=== PATIENT | male | born 1980 | race Caucasian/White ===

== ENCOUNTER 2018-03-26 14:50 | Emergency (ER) | payer OTHER ==
[2018-03-26] MEDS ORDERED: SODIUM CHLORIDE 0.9% 1,000 ML IV ONE (15:55)
[2018-03-26 16:18] LABS: BASOPHILS # (AUTO) 0.1 10^3/uL (0.0-0.1); BASOPHILS % (AUTO) 0.9 %; EOSINOPHILS # (AUTO) 0.2 10^3/uL (0.0-0.7); EOSINOPHILS % (AUTO) 2.3 %; HGB - HEMOGLOBIN 16.5 g/dL (14.0-18.0); LYMPHOCYTES # (AUTO) 1.8 10^3/uL (1.5-3.5); MEAN CORPUSCULAR HEMOGLOBIN 29.7 pg (27.0-31.0); MEAN CORPUSCULAR HGB CONC 35.5 g/dL (32.0-36.0); MEAN CORPUSCULAR VOLUME 83.5 fL (80.0-94.0); MEAN PLATELET VOLUME 8.1 fL (7.4-11.4); MONOCYTES # (AUTO) 0.8 10^3/uL (0.0-1.0); NEUTROPHILS # (AUTO) 4.8 10^3/uL (1.5-6.6); NEUTROPHILS % (AUTO) 62.8 %; PLT - PLATELET COUNT 239 10^3/uL (130-450); RED BLOOD COUNT 5.54 10^6/uL (4.70-6.10); RED CELL DISTRIBUTION WIDTH 12.7 % (12.0-15.0); WHITE BLOOD COUNT 7.7 x10^3/uL (4.8-10.8)
[2018-03-26 16:21] LABS: BILIRUBIN,URINE NEGATIVE (NEGATIVE); GLUCOSE, URINE (UA) NEGATIVE (NEGATIVE); KETONES,URINE (UA) NEGATIVE (NEGATIVE); LEUKOCYTE ESTERASE, URINE NEGATIVE (NEGATIVE); NITRITE,URINE NEGATIVE (NEGATIVE); OCCULT BLOOD,URINE NEGATIVE (NEGATIVE); PH,URINE 6.5 PH (5.0-7.5); PROTEIN,URINE NEGATIVE (NEGATIVE); UROBILINOGEN,URINE 0.2 (NORMAL) E.U./dL (NORMAL)
[2018-03-26 16:25] LABS: CLARITY,URINE CLEAR (CLEAR)
[2018-03-26 16:49] LABS: ALBUMIN 4.1 g/dL (3.2-5.5); ALBUMIN/GLOBULIN RATIO 1.2 (1.0-2.2); BILIRUBIN,TOTAL 0.3 mg/dL (0.2-1.0); CALCIUM 9.3 mg/dL (8.5-10.3); CREATININE 0.7 mg/dL (0.6-1.2); MAGNESIUM 2.1 mg/dL (1.7-2.8); TOTAL PROTEIN 7.5 g/dL (6.7-8.2)
--- NOTE | 2018-03-26 16:58 | ED Physician Documentation ---
History of Present Illness - Stated complaint Stated Complaint: DIZZY - Chief complaint Chief Complaint: Neuro - History obtained from History obtained from: Patient - Additonal information Additional information: 37-year-old male presents the emergency department for evaluation the episode of dizziness. The patient currently is incarcerated and was playing basketball when he became very lightheaded. Per bystanders the patient had to be lowered to the ground. The patient was altered during this episode. The patient denies any chest pain or palpitations before or after the event. No reports of trauma. Currently, the patient feels spacey. No specific triggering factors. No other associated symptoms. Symptoms are described as moderate. Review of Systems Constitutional: denies: Fever, Chills Eyes: denies: Discharge Ears: denies: Ear pain Nose: denies: Congestion Throat: denies: Sore throat Cardiac: denies: Chest pain / pressure, Palpitations Respiratory: denies: Dyspnea GI: denies: Abdominal Pain : denies: Dysuria, Hematuria Musculoskeletal: denies: Neck pain Neurologic: reports: Syncope. denies: Generalized weakness, Focal weakness, Numbness, Headache, Head injury Immunocompromised: denies: Chemotherapy PD PAST MEDICAL HISTORY - Past Medical History Cardiovascular: None Respiratory: None Endocrine/Autoimmune: None GI: None : None HEENT: None Psych: Depression Musculoskeletal: None Derm: None - Past Surgical History Past Surgical History: No - Present Medications Home Medications: Ambulatory Orders Medication Instructions Recorded Confirmed No Known Home Medications [No 03/26/18 03/26/18 Known Home Medications] - Allergies Allergies/Adverse Reactions: Allergies Allergy/AdvReac Type Severity Reaction Status Date / Time No Known Drug Allergies Allergy Verified 03/26/18 15:03 - Social History Does the pt smoke?: Yes Smoking Status: Current every day smoker Does the pt drink ETOH?: Yes Does the pt have substance abuse?: No - Immunizations Immunizations are current?: Yes - POLST Patient has POLST: No PD ED PE NORMAL - General General: Alert and oriented X 3, No acute distress - HEENT HEENT: Atraumatic, PERRL, EOMI - Neck Neck: Supple, no meningeal sign - Cardiac Cardiac: RRR, Strong equal pulses - Respiratory Respiratory: No respiratory distress - Abdomen Abdomen: Soft, Non tender - Derm Derm: Normal color - Extremities Extremities: No deformity, No tenderness to palpate, Normal ROM s pain - Neuro Neuro: Alert and oriented X 3, No motor deficit, Normal speech - Psych Psych: Normal affect Results - Vitals Vitals: Vital Signs - 24 hr 03/26/18 03/26/18 14:58 16:31 Temperature 36.6 C Heart Rate 103 H Heart Rate [ 87 Sitting] Heart Rate [ 89 Standing] Heart Rate [ 77 Supine] Respiratory 16 Rate Blood Pressure 151/103 H Blood Pressure 148/100 H [Sitting] Blood Pressure 128/84 H [Standing] Blood Pressure 136/86 H [Supine] O2 Saturation 94 Oxygen O2 Source Room air - EKG (time done) 14:53 Rate: Rate (enter#) Rhythm: NSR Intervals: Normal IL, QRS normal Ischemia: Normal ST segments Other comments: Other comments (Normal sinus rhythm without acute ischemic or arrhythmic changes) - Labs Labs: Laboratory Tests 03/26/18 03/26/18 03/26/18 16:10 16:14 16:14 WBC 7.7 RBC 5.54 Hgb 16.5 Hct 46.3 MCV 83.5 MCH 29.7 MCHC 35.5 RDW 12.7 Plt Count 239 MPV 8.1 Neut # (Auto) 4.8 Lymph # (Auto) 1.8 [place] # (Auto) 0.8 Eos # (Auto) 0.2 Baso # (Auto) 0.1 Absolute Nucleated RBC 0.00 Nucleated RBC % 0.1 Sodium 134 L Potassium 3.8 Chloride 100 L Carbon Dioxide 25 Anion Gap 9.0 BUN 14 Creatinine 0.7 Estimated GFR (MDRD) 126 Glucose 100 Calcium 9.3 Magnesium 2.1 Total Bilirubin 0.3 AST 42 ALT 85 H Alkaline Phosphatase 70 Total Creatine Kinase 44 Troponin I Total Protein 7.5 Albumin 4.1 Globulin 3.4 Albumin/Globulin Ratio 1.2 Lipase 30 Urine Color YELLOW Urine Clarity CLEAR Urine pH 6.5 Ur Specific [place] 1.010 Urine Protein NEGATIVE Urine Glucose (UA) NEGATIVE Urine Ketones NEGATIVE Urine Occult Blood NEGATIVE Urine Nitrite NEGATIVE Urine Bilirubin NEGATIVE Urine Urobilinogen 0.2 (NORMAL) Ur Leukocyte Esterase NEGATIVE Ur Microscopic Review NOT INDICATED Urine Culture Comments NOT INDICATED 03/26/18 16:14 WBC RBC Hgb Hct MCV MCH MCHC RDW Plt Count MPV Neut # (Auto) Lymph # (Auto) [place] # (Auto) Eos # (Auto) Baso # (Auto) Absolute Nucleated RBC Nucleated RBC % Sodium Potassium Chloride Carbon Dioxide Anion Gap BUN Creatinine Estimated GFR (MDRD) Glucose Calcium Magnesium Total Bilirubin AST ALT Alkaline Phosphatase Total Creatine Kinase Troponin I < 0.04 Total Protein Albumin Globulin Albumin/Globulin Ratio Lipase Urine Color Urine Clarity Urine pH Ur Specific [place] Urine Protein Urine Glucose (UA) Urine Ketones Urine Occult Blood Urine Nitrite Urine Bilirubin Urine Urobilinogen Ur Leukocyte Esterase Ur Microscopic Review Urine Culture Comments - Rads (name of study) Chest XR Radiology: Final report received (IMPRESSION: No acute cardiopulmonary abnormality. ) PD MEDICAL DECISION MAKING - ED course ED course: The patient's workup does not reveal any significant abnormality, the patient appears low risk and appropriate for discharge back to the [facility]. I recommended further workup as an outpatient. The patient on reexamination feels much improved and appears appropriate for discharge and ongoing outpatient management. I discussed warning signs and recommended returning to the emergency department immediately for worsening or any concerns - Sepsis Event Vital Signs: Vital Signs - 24 hr 03/26/18 03/26/18 14:58 16:31 Temperature 36.6 C Heart Rate 103 H Heart Rate [ 87 Sitting] Heart Rate [ 89 Standing] Heart Rate [ 77 Supine] Respiratory 16 Rate Blood Pressure 151/103 H Blood Pressure 148/100 H [Sitting] Blood Pressure 128/84 H [Standing] Blood Pressure 136/86 H [Supine] O2 Saturation 94 Oxygen O2 Source Room air Departure - Departure Disposition: 01 Home, Self Care Clinical Impression: Syncope Qualifiers: Syncope type: unspecified Qualified Code(s): R55 - Syncope and collapse Condition: Good Instructions: ED Dizziness UKO, Syncope Causes Follow-Up: Nimo Brown PA [Primary Care Provider] - Within 1 week (Please ask your primary care provider to arrange for an outpatient echocardiogram and Holter monitor to further assess your symptoms) Comments: Please return to the emergency department immediately for worsening symptoms or any concerns
--- NOTE | 2018-03-26 17:55 | XRAY Report ---
Reason: syncope Procedure Date: 03/26/2018 Accession Number: [id number] / [id number] Procedure: XR - Chest 2 View X-Ray CPT Code: 21063 FULL RESULT: EXAM: CHEST RADIOGRAPHY EXAM DATE: 03/26/2018 05:35 PM. CLINICAL HISTORY: Syncope COMPARISON: 10/26/2014. TECHNIQUE: 2 views. FINDINGS: Lungs/Pleura: No focal opacities evident. No pleural effusion. No pneumothorax. Normal volumes. Mediastinum: Heart and mediastinal contours are normal. Other: None. IMPRESSION: No acute cardiopulmonary abnormality. RADIA
[2018-03-26 18:15] VITALS: BP 125/86
== END 2018-03-26 18:15 | disposition home or self-care (01) ==
LOC: ED 14:50
DX: R55 Syncope and collapse (principal); F17.200 Nicotine dependence, unspecified, uncomplicated
CPT/HCPCS: 71046; 80053; 81001; 81003; 82550; 83690; 83735; 84484; 85025; 87086; 93005; 96360; 99283

== ENCOUNTER 2022-10-08 12:45 | Emergency (ER) | payer BC, OTHER ==
[2022-10-08 13:07] VITALS: BP 141/90
[2022-10-08] MEDS ORDERED: lidocaine 1% 20 ML MDV SUBQ ONE (13:25)
[2022-10-08] MEDS ORDERED: BACITRACIN ZINC OINT 1 PACKET TOP STA (13:25)
--- NOTE | 2022-10-08 13:28 | ED Physician Documentation ---
History of Present Illness - Stated complaint Stated Complaint: L FINGER LAC - Chief complaint Chief Complaint: Laceration - Additonal information Additional information: 41-year-old male presents emergency department for evaluation of a U-shaped laceration to the fat pad of his left small finger. Was working on brakes at home when a clamp he was using slipped striking in the small finger. Last tetanus about 2 years ago. He is right-hand dominant. Neurovascularly intact. Review of Systems Constitutional: denies: Fever, Chills Skin: reports: Laceration (s) PD PAST MEDICAL HISTORY - Past Medical History Cardiovascular: None Respiratory: None Endocrine/Autoimmune: None GI: None : None HEENT: None Psych: Depression Musculoskeletal: None Derm: None - Past Surgical History Past Surgical History: No - Present Medications Home Medications: Ambulatory Orders Medication Instructions Recorded Confirmed cephALEXin [Keflex] 500 mg PO Q6H #28 cap 10/08/22 oxyCODONE [Roxicodone] 5 mg PO TID PRN #15 tablet 10/08/22 - Allergies Allergies/Adverse Reactions: Allergies Allergy/AdvReac Type Severity Reaction Status Date / Time No Known Drug Allergies Allergy Verified 10/08/22 13:07 - Social History Does the pt smoke?: Yes Smoking Status: Current every day smoker Does the pt drink ETOH?: Yes Does the pt have substance abuse?: No - Immunizations Immunizations are current?: Yes - POLST Patient has POLST: No PD ED PE EXPANDED - Extremities Extremities: Left finger(s) (4 cm U-shaped macerated laceration/avulsion to the fat pad of the left small finger. Neurovascular intact. Flexion extension at DIP preserved. Large amount of exposed fatty and muscle tissue.) Results - Vitals Vitals: Vital Signs - 24 hr 10/08/22 13:04 Temperature 36 C L Heart Rate 93 Respiratory 16 Rate Blood Pressure 141/90 H O2 Saturation 96 Oxygen O2 Source Room air - Rads (name of study) left fingers Relevant Findings:: EMP independent interpretation of test (Distal left phalanx fracture of small finger) Procedures - Laceration (location) left small finger Length in cm: 4 Wound type: Irregular, Into muscle, Contaminated, Exposure of bone Neurovascular status: Sensory intact, Motor intact Tendon involvement: Tendon intact Anesthesia: Lidocaine 1% Wound preparation: Chlorhexadine, Irrigated copiously NS Skin layer closure: Nylon, Interrupted, Sutures - enter # (8) Other: Patient tolerated well, No complications, Neurovascular intact, Tetanus UTD PD Medical Decision Making - ED course Complexity details: reviewed results, re-evaluated patient, considered differential, d/w patient ED course: 41-year-old male presents emergency department for evaluation of a laceration to the fat pad of his left small finger sustained when working on his car at home, the clamps slipped striking his finger. On exam he has a U-shaped macerated laceration to his fat pad. There is significant avulsion of tissue including fat and muscle body. Unfortunately an x-ray also shows a distal phalanx fracture. At the bedside the wound was copiously irrigated with saline. The edges were approximated using 8 interrupted nylon sutures. Patient's tetanus is up-to-date. I recommended an injection of an antibiotic i.e. ceftriaxone as prophylaxis for an open fracture but the patient declined to that. He will only take oral antibiotics. Once the wound was approximated a dressing and finger splint were placed. He will follow closely with orthopedics for longer-term evaluation and management. Limited perch prescription for oxycodone has been sent to the patient's preferred pharmacy as well as a 7-day course of Keflex. Usualwound care and emergent return precautions for concerns of infection were discussed. I am prescribing a short course of short-acting opioid pain medication for this patient. I have reviewed the patients [employer] and no concerning findings were noted. I have discussed that the opioids are for short term therapy only, and will not be refilled from the ED. Departure - Departure Disposition: 01 Home, Self Care Clinical Impression: Phalanx, distal fracture of finger Qualifiers: Encounter type: initial encounter Finger: little finger Fracture type: open Fracture alignment: displaced Laterality: left Qualified Code(s): S62.637B - Displaced fracture of distal phalanx of left little finger, initial encounter for open fracture Finger laceration Qualifiers: Encounter type: initial encounter Finger: little finger Condition: Stable Record reviewed to determine appropriate education?: Yes Follow-Up: Alexis Best MD [Provider Admit Priv/Credential] - Prescriptions: cephALEXin [Keflex] 500 mg PO Q6H #28 cap oxyCODONE [Roxicodone] 5 mg PO TID PRN #15 tablet PRN Reason: Pain Comments: Joshua unfortunately the x-ray confirms that you do have a fracture of the distal bone of your small finger. This is also accompanied by a large, macerated injury to the finger in which she sustained a loss of tissue as well. We did place 8 sutures in this finger in order to approximate the wound. However this will have to also heal by secondary intention or from the inside out over time. You declined to receive an intramuscular injection of ceftriaxone today. This is critical to help reduce the risk of infection in the fingers. However we are also sending a prescription for 7 days of Keflex to the pharmacy. A limited prescription of oxycodone for pain is also been sent. 24 hours time you can gently remove your dressing wash with warm soap and water, pat dry and then apply antibiotic ointment such as bacitracin to the wound. Then apply a bandage and your splint again. This wound will take 2 to 3 weeks to heal. The bone itself will take 6 to 10 weeks to heal. It is important that you follow closely with an orthopedic doctor. Please call your doctor tomorrow to obtain the referral. I do recommend Dr. Best our local orthopedic surgeon here if you have a private 1 that you prefer to follow- up with you can do that as well If you develop any concerns of infection, fevers, have finger redness, milky drainage or red streaking please return to the ER for second evaluation
[2022-10-08] MEDS ORDERED: LIDOCAINE 1% 2 ML VIAL MC ONE (13:37)
[2022-10-08] MEDS ORDERED: cefTRIAXone 1 GM VIAL IM STA (13:37)
[2022-10-08] MEDS ORDERED: cephALEXin 250 MG CAPSULE PO STA (14:08)
--- NOTE | 2022-10-08 14:31 | XRAY Report ---
PROCEDURE: Finger(s) LT INDICATIONS: Pain laceration questionable distal phalanx fractu TECHNIQUE: AP hand, 2 views of the small finger(s) acquired. COMPARISON: None FINDINGS: Bones: Markedly comminuted distal tuft fracture of small finger with distracted major fragment. No pappas spicious bony lesions. Soft tissues: No suspicious soft tissue calcifications. Soft tissue laceration. No radiopaque foreig n body. IMPRESSION: Markedly comminuted distal tuft fracture of small finger with distracted major fragment. Reviewed by: Mu Lancaster MD on 10/08/2022 2:30 PM PST Approved by: Mu Lancaster MD on 10/08/2022 2:30 PM PST Station ID: [id number]
== END 2022-10-08 14:50 | disposition home or self-care (01) ==
LOC: ED 12:45
DX: S62.637B Displaced fracture of distal phalanx of left little finger, initial encounter for open fracture (principal); W22.8XXA Striking against or struck by other objects, initial encounter; Y93.89 Activity, other specified; F17.200 Nicotine dependence, unspecified, uncomplicated
CPT/HCPCS: 13132; 73140; 99283; 99284; A9270